=== PATIENT | female | born 1990 | race Caucasian/White ===

== ENCOUNTER → 2017-11-01 | Outpatient (CLI) | payer OTHER ==
[~2017-11-01] MED LIST: CLONAZEPAM 1 MG1 M1 PO; TRAZODONE HCL50 MG PO; XANAX 0.5 MG0.5 MG PO; prozac PO
== END ==
LOC: M.RAD 10:11
DX: M25.78 Osteophyte, vertebrae (principal); M54.42 Lumbago with sciatica, left side; M54.41 Lumbago with sciatica, right side

== ENCOUNTER → 2018-01-03 | Outpatient (CLI) | payer OTHER ==
--- NOTE | 2018-01-16 08:21 | PAINCON ---
[address] [address] PAIN MANAGEMENT CONSULTATION Name: ANTHONYZAKI Pat Room: [facility].#: [id number] Admission: 01/03/18 Attend Phys: Matt Marx MD Discharge: Date of : 86 Report #: [id number] THIS REPORT FOR: //name// CC: MD Matt Desai DATE OF SERVICE: 01/03/2018 CHIEF COMPLAINT: Pain in the mid low back area as well as down into the area of the tailbone and hips. FOLLOWUP HISTORY: The patient is a 27-year-old female who has been referred to the Pain Clinic for evaluation. The patient has been having some worsening of her pain. She has had some pain and problems for about 2 years. She noted that she has been doing a lot of heavy lifting at her job. She recalls picking up a box a couple of months ago. At that time, she felt like her back got "stuck." She has been experiencing increasing pain and discomfort since that time. She has been told that she has a problem with the disc in her back. She is contemplating undergoing an epidural steroid injection to see whether or not this would improve her pain. She rates her pain as an 8/10. She has been trying hydrocodone, but this has not been very helpful. The patient is about to get that prescription. She denies any bowel or bladder dysfunction. She has not had back surgery. Heat has been sometimes helpful. The patient was doing heavy lifting and picking up a 50-pound box when she hurt her back. She had some radiculopathy at that time involving the right side and then the left. She went to the Emergency Room and was diagnosed with muscle strain. She suffered another back injury on 11/07/2017. She was going up a ramp at home. She slipped on the ramp and fell hard on her butt. She noted significant pain and some bruising. The patient did have some radiculopathy on 12/03/2017. ALLERGIES: No known drug allergies. CURRENT MEDICATIONS: Hydrocodone 5/325 one p.o. q.4-6 hours p.r.n. pain, Xanax 0.5 mg p.r.n., clonazepam 1 mg by mouth t.i.d. as needed for seizures, Prozac 20 mg t.i.d., trazodone 50 mg 2 tablets at bedtime or 2 tablets daily, and vitamin D 50,000 units. PAST MEDICAL HISTORY: Anxiety, depression, troubles getting sleep/insomnia, panic attacks. PAST SURGICAL HISTORY: Head trauma, tonsillectomy. FAMILY HISTORY: Mother has depression. Mother is alive. [place] [address] PAIN MANAGEMENT CONSULTATION Name: ZAKI CRUZ Room: [facility]#: [id number] Admission: 01/03/18 Attend Phys: Matt Marx MD Discharge: Date of : 86 Report #: [id number] WORK HISTORY: The patient works as a parts rig welder. States that she is working at this juncture. REVIEW OF SYSTEMS: Fatigue, weakness, shortness of breath walking on the flat, chronic cough, asthma, shortness of breath, abdominal pain, frequent urination, joint pain, joint stiffness and swelling, weakness of the muscles, muscle pain with cramps, back pain, difficulty walking, varicose veins, lightheadedness, dizziness, numbness and tingling sensation, head injury, nervousness, depression, insomnia, bleeding tendencies ADDENDUM LABORATORY DATA: CT of the lumbar spine dated 12/06/2017: 1. L4-L5 3-mm right paracentral disk protrusion with mild central spinal stenosis. 2. L5-S1 disk bulge with facet arthropathy with bilateral neural foraminal stenosis. PAIN CLINIC ASSESSMENT: 1. The patient is not being treated for osteoarthritis or rheumatoid arthritis. 2. Height 5 feet 4 inches, weight 227 pounds, BMI is 39. 3. Vital signs: Blood pressure 130/84, heart rate 103, respiratory rate 16, room air saturation 97%, temperature 98.5. 4. The patient rates pain as a 7-8/10. 5. Fall risk. The patient fell on her buttocks a few weeks ago. 6. Blood thinner. The patient is not on a blood thinner. 7. History of hypertension. The patient is not being treated for hypertension. 8. Opioid therapy greater than 6 weeks. The patient is not on an opioid regimen. 9. Risk assessment tool. 10. Functional assessment tool. 11. Recreational drug use. The patient denies recreational drug use. 12. Tobacco. The patient is an everyday smoker, smokes 1/2 pack a day of cigarettes at this juncture, has smoked for 13 years. PHYSICAL EXAMINATION: GENERAL: The patient is a well-developed white female. She appears her stated age. ORIENTATION: The patient is alert and oriented x 3. AFFECT: The patient's affect appears appropriate. SPEECH: Smooth and fluent. NECK: Without JVD or adenopathy. CHEST: Clear to auscultation. HEART: Regular rate, normal rhythm, no murmurs. MUSCULOSKELETAL: Alignment appears normal without significant kyphosis, scoliosis, or lordosis. The patient has some pain and discomfort to palpation [facility] [address] [place] [address] PAIN MANAGEMENT CONSULTATION Name: ZAKI CRUZ Room: [facility]#: [id number] Admission: 01/03/18 Attend Phys: Matt Marx MD Discharge: Date of : 86 Report #: [id number] in the midline to approximately bra level. Has some discomfort in the area of the left and right paraspinous areas at L4-L5. Complains of some discomfort radiating around the anterior portion of her thighs bilaterally and has pain that is radiating down into the L4-L5 distribution on the left side. Straight leg raise positive. IMPRESSION: 1. History of acute bilateral low back pain with sciatica. 2. History of single episode of major depression. 3. Anxiety. 4. Insomnia. RECOMMENDATIONS: We discussed treatment options with the patient. Risks and benefits of an epidural steroid injection were discussed. A model was used to indicate the area of probable pathology. We reviewed the patient's CT results. She is having pain and discomfort, which is radiating down into the left posterior portion of her leg in the L4-L5 distribution. She desires an epidural steroid injection at this juncture. We discussed possible complications of the procedure, which could include but are not limited to infection, increased muscle soreness, headache, bleeding, muscle damage, or paralysis. The patient elects to proceed. PROCEDURE NOTE: The patient was assisted in the fluoroscopy room to the table. After appropriate placement, her back was sterilely prepped with a Betadine solution. Fluoroscopy was used providing anterior, posterior as well as lateral viewing of the injection site. After this area had been targeted, a 0.25% bupivacaine was infiltrated. A 17-gauge Tuohy with loss of resistance technique was used to gain access to the epidural space. There was no CSF or heme. A total of 80 mg Depo-Medrol, 40 mg triamcinolone, and 2 mL of 0.25% bupivacaine was injected. The patient tolerated the procedure well. She remained in the Pain Clinic for an appropriate amount of time. A Band-Aid was placed in the site. There was no bleeding. She will follow up in the future as needed. We would like to thank you for letting us participate in her care. We hope she continues to improve. <ELECTRONICALLY SIGNED> By: Matt Marx MD 01/16/18 [id number]. Sandeep Marx MD /nt
== END ==
LOC: M.PC 03:52
DX: M54.16 Radiculopathy, lumbar region (principal); G89.29 Other chronic pain; F41.8 Other specified anxiety disorders; F32.9 Major depressive disorder, single episode, unspecified; F17.210 Nicotine dependence, cigarettes, uncomplicated; Z98.890 Other specified postprocedural states; Z87.898 Personal history of other specified conditions; Z79.899 Other long term (current) drug therapy

== ENCOUNTER 2020-09-20 00:29 | Emergency (ER) | payer OTHER ==
[~2020-09-20] VITALS: Ht 160 cm; Wt 95.3 kg
[2020-09-20] MEDS ORDERED: PROZAC40 MG PO (01:11)
[2020-09-20 01:28] LABS: INFLUENZA A ANTIGEN Negative (Negative); INFLUENZA B ANTIGEN Negative (Negative)
[2020-09-20] MEDS ORDERED: PREDNISONE50 MG PO (02:11)
[2020-09-20] MEDS ORDERED: HYDROCODON-ACE1 EAC8 PO (02:11)
[2020-09-20] MEDS ORDERED: PROAIR HFA8.5 GM INH (02:11)
[2020-09-20] MEDS ORDERED: ZOFRAN ODT4 MG PO (02:33)
[2020-09-20 02:36] VITALS: BP 145/72
== END 2020-09-20 02:36 | disposition home or self-care (01) ==
LOC: M.ERS 00:29
PROVIDERS: Emergency Medicine
DX: J40 Bronchitis, not specified as acute or chronic (principal); Z20.828 Contact with and (suspected) exposure to other viral communicable diseases